=== PATIENT | female | born 1930 | race Caucasian/White ===

== ENCOUNTER 2016-09-24 09:44 | Emergency (ER) | payer OTHER ==
[2016-09-24 10:14] VITALS: BP 154/67
--- NOTE | 2016-09-24 10:46 | UC ---
Throat Pain/Nasal Ja HPI - HPI Summary HPI Summary: sinus pain and pressure x 4 weeks , + pnd, cough, nasal congestion no fever, no chills - History of Current Complaint Chief Complaint: UCRespiratory Stated Complaint: SINUS,SORE THROAT,COUGH Time Seen by Provider: 09/24/16 10:33 Hx Obtained From: Patient Onset/Duration: Gradual Onset, Lasting Weeks - 4, Still Present Severity: Moderate Cough: Nonproductive Associated Signs & Symptoms: Positive: Sinus Discomfort, Nasal Discharge. Negative: Fever, Rash - Allergies/Home Medications Allergies/Adverse Reactions: Allergies Allergy/AdvReac Type Severity Reaction Status Date / Time No Known Allergies Allergy Verified 09/24/16 10:18 Home Medications: Home Medications Bimatoprost 0.01% OPHTH (NF) [Lumigan 0.01% OPHTH (NF)] 1 drop BOTH EYES QPM [History Confirmed 09/24/16] Calcium Carbonate-Cholecalcife [Caltrate 600+D] 1 chw PO DAILY 09/24/16 [ History Confirmed 09/24/16] Cetirizine* [ZyrTEC 10 MG TAB*] 10 mg PO DAILY 09/24/16 [History Confirmed 09/24] Cyclosporine 0.05% OPHTH (NF) [Restasis 0.05% OPHTH] 1 drop BOTH EYES DAILY [History Confirmed 09/24/16] DULoxetine DR CAP* [Cymbalta CAP*] 30 mg PO DAILY 09/24/16 [History Confirmed ] Enalapril TAB* [Vasotec TAB*] 5 mg PO DAILY 09/24/16 [History Confirmed 09/24/16 ] Fluticasone NASAL SPRAY 50MCG* [Flonase NASAL SPRAY 50MCG*] 2 spray BOTH NARES DAILY 09/24/16 [History Confirmed 09/24/16] Folic Acid TAB* [Folvite TAB*] 1 mg PO DAILY 09/24/16 [History Confirmed ] Hydroxychloroquine TAB* [Plaquenil TAB*] 400 mg PO DAILY 09/24/16 [History Confirmed 09/24/16] Levothyroxine TAB* [Synthroid TAB*] 25 mcg PO 0800 09/24/16 [History Confirmed 09/24/16] Magnesium 500 mg PO DAILY 09/24/16 [History Confirmed 09/24/16] Methotrexate TAB* 5 tab PO Q7D 09/24/16 [History Confirmed 09/24/16] Multiple Vitamins W/ Minerals [Centrum] 1 tab PO DAILY 09/24/16 [History Confirmed 09/24/16] Omeprazole CAP* [Prilosec CAP* 20 MG] 20 mg PO DAILY 09/24/16 [History Confirmed 09/24/16] Pravastatin (NF) [Pravachol (NF)] 20 mg PO 1700 09/24/16 [History Confirmed ] Zolpidem TAB* [Ambien TAB*] 5 mg PO BEDTIME PRN 09/24/16 [History Confirmed ] PMH/Surg Hx/FS Hx/Imm Hx Endocrine History Of: Reports: Thyroid Disease Cardiovascular History Of: Reports: Hypertension - Surgical History Surgical History: Yes Surgery Procedure, Year, and Place: appendix. hysterectomy. back surgery - Family History Known Family History: Negative: Diabetes - Social History Alcohol Use: Rare Substance Use Type: None Smoking Status (MU): Never Smoked Tobacco - Immunization History Most Recent Influenza Vaccination: [id number] Review of Systems Constitutional: Negative Skin: Negative Eyes: Negative ENT: Sore Throat, Nasal Discharge Respiratory: Cough All Other Systems Reviewed And Are Negative: Yes Physical Exam Triage Information Reviewed: Yes Appearance: Well-Appearing, No Pain Distress, Well-Nourished Vital Signs: Initial Vital Signs Temp 97.7 F 09/24/16 10:11 Pulse 91 09/24/16 10:11 Resp 14 09/24/16 10:11 BP 154/67 09/24/16 10:11 Pulse Ox 99 09/24/16 10:11 Vital Signs Reviewed: Yes Eyes: Positive: Conjunctiva Clear ENT: Positive: Normal ENT inspection, Hearing grossly normal, Pharyngeal erythema, Nasal congestion, Nasal drainage Neck exam: Normal Neck: Positive: Supple, Nontender, No Lymphadenopathy Respiratory: Positive: Chest non-tender, Lungs clear, Normal breath sounds, No respiratory distress Cardiovascular: Positive: RRR, No Murmur, Pulses Normal Skin Exam: Normal Throat Pain/Nasal Course/Dx - Differential Dx/Diagnosis Provider Diagnoses: Sinusitis Discharge - Discharge Plan Condition: Stable Disposition: HOME Prescriptions: Amoxicillin/Clavulanate TAB* [Augmentin TAB 875*] 875 mg PO BID #20 tab Patient Education Materials: Sinusitis (ED) Additional Instructions: follow up with your pcp in 10 days
== END 2016-09-24 10:55 | disposition home or self-care (01) ==
LOC: UCCORT 09:44
DX: J32.9 Chronic sinusitis, unspecified (principal); E07.9 Disorder of thyroid, unspecified; I10 Essential (primary) hypertension
CPT/HCPCS: 99202; G0463

== ENCOUNTER 2021-08-13 16:37 | Observation (INO) ==
[2021-08-13 18:59] LABS: ABS Basophils 0.1 10^3/ul (0-0.2); ABS Eosinophils 0.4 10^3/ul (0-0.6); ABS Lymphocytes 1.3 10^3/ul (1.0-4.8); ABS Monocytes 0.9 10^3/ul (0-0.8); ABS Neutrophils 7.7 10^3/ul (1.5-7.7); Eosinophil % 3.5 %; Hematocrit 37 % (35-47); Hemoglobin 12.5 g/dL (12.0-16.0); Lymphocyte % 12.6 %; Mean Corpuscular HGB Conc 34 g/dL (31-36); Mean Corpuscular Hemoglobin 32 pg (27-31); Mean Corpuscular Volume 93 fL (80-97); Platelet Count 232 10^3/uL (150-450); Red Blood Count 3.95 10^6 /uL (3.70-4.87); Red Cell Distribution Width 13 % (10-15); White Blood Count 10.3 10^3/uL (3.5-10.8)
[2021-08-13 19:30] LABS: Albumin 4.2 g/dL (3.2-5.2); Albumin/Globulin Ratio 1.8 (1-3); Calcium 9.9 mg/dL (8.6-10.3); Globulin 2.4 g/dL (2-4); Potassium 4.5 mmol/L (3.5-5.0); Total Bilirubin 0.4 mg/dL (0.2-1.0); Total Protein 6.6 g/dL (6.4-8.9); eGFR CKD-EPI 71.5 (>60)
[2021-08-13] MEDS ORDERED: Ondansetron 4 mg VIAL 2 MG/ML 2 ml VIAL IV ONE (19:34)
[2021-08-13] MEDS ORDERED: Ondansetron 4 mg VIAL 2 MG/ML 2 ml VIAL IV PRN (21:12)
[2021-08-13 21:22] LABS: Troponin I 0.03 ng/mL (<0.03)
[2021-08-13] MEDS ORDERED: Tetan/Diph/Pertus SYR(Tdap) 0.5 ML SYR(BOOSTRIX) use SYR contains LATEX IM ONE (23:01)
[2021-08-13 23:13] LABS: Urine Appearance Clear; Urine Bilirubin Negative (Negative); Urine Blood Negative (Negative); Urine Color Yellow; Urine Glucose Negative (Negative); Urine Ketones Negative (Negative); Urine Nitrite Negative (Negative); Urine Protein Negative (Negative); Urine Specific Gravity 1.011 (1.002-1.030); Urine Urobilinogen Negative (Negative)
[2021-08-13] MEDS ORDERED: NS 0.9% 1000 ml BAG 1,000 ML IV SCH (23:15)
[2021-08-13 23:58] LABS: TSH Ultra Thyroid Stim Horm 0.85 mcIU/mL (0.34-5.60)
[2021-08-14] MEDS: CMC:Letrozole 2.5 MG TAB (NF) PO SCH (10:18)
[2021-08-14] MEDS: Multivitamins/Minerals TAB PO SCH (10:18)
[2021-08-14] MEDS ORDERED: NS 0.9% 1000 ml BAG 1,000 ML IV SCH (11:11)
[2021-08-14] MEDS: Pravastatin 20 mg TAB (NF) PO SCH (16:45)
[2021-08-14] MEDS: Enoxaparin 40 MG/0.4 ML SYR SUBCUT SCH (17:48)
[2021-08-14] MEDS: DULoxetine DR 30 mg CAP PO SCH (20:55)
[2021-08-15 06:55] LABS: ABS Basophils 0.1 10^3/ul (0-0.2); ABS Eosinophils 0.4 10^3/ul (0-0.6); ABS Lymphocytes 1.4 10^3/ul (1.0-4.8); ABS Monocytes 0.7 10^3/ul (0-0.8); ABS Neutrophils 3.2 10^3/ul (1.5-7.7); Eosinophil % 6.4 %; Hematocrit 27 % (35-47); Hemoglobin 9.1 g/dL (12.0-16.0); Mean Corpuscular HGB Conc 34 g/dL (31-36); Mean Corpuscular Hemoglobin 32 pg (27-31); Mean Corpuscular Volume 95 fL (80-97); Mean Platelet Volume 8.1 fL (7.4-10.4); Platelet Count 173 10^3/uL (150-450); Red Blood Count 2.84 10^6 /uL (3.70-4.87); Red Cell Distribution Width 13 % (10-15); White Blood Count 5.7 10^3/uL (3.5-10.8)
[2021-08-15 07:25] LABS: Calcium 8.5 mg/dL (8.6-10.3); Potassium 4.8 mmol/L (3.5-5.0); eGFR CKD-EPI 56.6 (>60)
[2021-08-15] MEDS: Multivitamins/Minerals TAB PO SCH (09:40)
[2021-08-15] MEDS: CMC:Letrozole 2.5 MG TAB (NF) PO SCH (09:40)
[2021-08-15] MEDS ORDERED: Perflutren Lipid Microsphere 3 ML VIAL ONE (10:26)
[2021-08-15] MEDS ORDERED: NS 0.9% 1000 ml BAG 1,000 ML IV SCH (12:15)
[2021-08-15] MEDS ORDERED: NS 0.9% 1000 ml BAG 1,000 ML IV ONE (12:29)
[2021-08-15] MEDS: Enoxaparin 40 MG/0.4 ML SYR SUBCUT SCH (17:10)
[2021-08-15] MEDS: Pravastatin 20 mg TAB (NF) PO SCH (17:10)
[2021-08-15] MEDS: DULoxetine DR 30 mg CAP PO SCH (19:57)
[2021-08-16 05:30] LABS: ABS Basophils 0.1 10^3/ul (0-0.2); ABS Eosinophils 0.5 10^3/ul (0-0.6); ABS Lymphocytes 1.4 10^3/ul (1.0-4.8); ABS Monocytes 0.7 10^3/ul (0-0.8); ABS Neutrophils 3.4 10^3/ul (1.5-7.7); Eosinophil % 7.8 %; Hematocrit 26 % (35-47); Hemoglobin 8.7 g/dL (12.0-16.0); Lymphocyte % 22.9 %; Mean Corpuscular HGB Conc 34 g/dL (31-36); Mean Corpuscular Hemoglobin 32 pg (27-31); Mean Corpuscular Volume 94 fL (80-97); Mean Platelet Volume 7.9 fL (7.4-10.4); Nucleated Red Blood Cells % 0.1; Platelet Count 175 10^3/uL (150-450); Red Blood Count 2.76 10^6 /uL (3.70-4.87); Red Cell Distribution Width 13 % (10-15)
[2021-08-16 05:59] LABS: Calcium 8.5 mg/dL (8.6-10.3); Potassium 4.5 mmol/L (3.5-5.0); eGFR CKD-EPI 72.6 (>60)
[2021-08-16] MEDS: Multivitamins/Minerals TAB PO SCH (09:49)
[2021-08-16] MEDS: CMC:Letrozole 2.5 MG TAB (NF) PO SCH (09:49)
[2021-08-16 11:54] VITALS: BP 139/54
== END 2021-08-16 15:21 | disposition home or self-care (01) ==
LOC: EDHOLD 16:37 → ED 16:37 → SUATTDRO 21:42 → MEDTELE 08-14 00:21
PROVIDERS: ADMIT Hospitalist; ATTEND Internal Medicine

== ENCOUNTER 2022-01-02 06:16 | Observation (INO) ==
[2022-01-02] MEDS ORDERED: ceFAZolin 1 GM ADVAN 1 GM in NS 0.9% 50 ML 50 ML IVPB ONE (07:17)
[2022-01-02 08:29] LABS: ABS Lymphocytes 0.5 10^3/ul (1.0-4.8); ABS Monocytes 0.6 10^3/ul (0-0.8); ABS Neutrophils 8.2 10^3/ul (1.5-7.7); Eosinophil % 0.1 %; Hematocrit 38 % (35-47); Hemoglobin 12.6 g/dL (12.0-16.0); Lymphocyte % 5.1 %; Mean Corpuscular HGB Conc 34 g/dL (31-36); Mean Corpuscular Hemoglobin 31 pg (27-31); Mean Corpuscular Volume 91 fL (80-97); Mean Platelet Volume 7.5 fL (7.4-10.4); Platelet Count 227 10^3/uL (150-450); Red Blood Count 4.12 10^6 /uL (3.70-4.87); Red Cell Distribution Width 18 % (10-15); White Blood Count 9.3 10^3/uL (3.5-10.8)
[2022-01-02 09:07] LABS: Albumin 3.8 g/dL (3.2-5.2); Albumin/Globulin Ratio 1.6 (1-3); C Reactive Protein 41.22 mg/L (<8.01); Calcium 9.5 mg/dL (8.6-10.3); Globulin 2.4 g/dL (2-4); Potassium 4.7 mmol/L (3.5-5.0); Total Bilirubin 0.5 mg/dL (0.2-1.0); Total Protein 6.2 g/dL (6.4-8.9); eGFR CKD-EPI 57.3 (>60)
[2022-01-02 09:36] LABS: Urine Appearance Clear; Urine Bilirubin Negative (Negative); Urine Blood Negative (Negative); Urine Color Yellow; Urine Glucose Trace (100mg/dL) (Negative); Urine Ketones Negative (Negative); Urine Nitrite Negative (Negative); Urine Protein Negative (Negative); Urine Specific Gravity 1.015 (1.005-1.030); Urine Urobilinogen 0.2 (Negative) (Negative); Urine pH 7.5 (5.0-9.0)
[2022-01-02] MEDS ORDERED: NS 0.9% 1000 ml BAG 1,000 ML IV ONE (09:36)
[2022-01-02] MEDS ORDERED: Ondansetron 4 mg VIAL 2 MG/ML 2 ml VIAL IV PRN (10:04)
[2022-01-02] MEDS ORDERED: ceFAZolin 2 GM in NS PREMIX 2 GM/100 ML BAG IVPB SCH (11:00)
[2022-01-02] MEDS ORDERED: ceFAZolin 1 GM in Dextrose 1 GM/50 ML BAG IVPB ONE (12:30)
[2022-01-02] MEDS: Enoxaparin 40 MG/0.4 ML SYR SUBCUT SCH (12:34)
[2022-01-02] MEDS: CMCS: Pravastatin 20 mg TAB (NF) PO SCH (16:40)
[2022-01-02] MEDS: ceFAZolin 2 GM in NS PREMIX 2 GM/100 ML BAG IVPB SCH (17:32)
[2022-01-02] MEDS ORDERED: DULoxetine DR 30 mg CAP PO SCH (21:00)
[2022-01-02] MEDS ORDERED: Brimonidine/Timolol 0.2%/0.5% OPTH(NF) SOL 5 ML BOTH EYES SCH (21:00)
[2022-01-02] MEDS: DULoxetine DR 30 mg CAP PO SCH (22:40)
[2022-01-03] MEDS: CMCS: Brimonidine/Timolol 0.2%/0.5% OPTH(NF) SOL 5 ML BOTH EYES SCH ×3 (00:10→21:10)
[2022-01-03] MEDS: ceFAZolin 2 GM in NS PREMIX 2 GM/100 ML BAG IVPB SCH (02:14)
[2022-01-03] MEDS: CMCS: Letrozole 2.5 MG TAB (NF) PO SCH (08:45)
[2022-01-03] MEDS: Multivitamins/Minerals TAB PO SCH (08:45)
[2022-01-03] MEDS: Calcium (OSCAL) 500 mg TAB PO SCH (08:45)
[2022-01-03] MEDS: ceFAZolin 2 GM PREMIX 2 G/50 ML BAG IV SCH ×2 (08:46→17:39)
[2022-01-03] MEDS ORDERED: MULTIVIT MINERAL IRON LUTEIN PO SCH (09:00)
[2022-01-03] MEDS ORDERED: CALCIUM CARBONATE 600 MG PO SCH (09:00)
[2022-01-03] MEDS ORDERED: Letrozole 2.5 MG TAB (NF) PO SCH (09:00)
[2022-01-03] MEDS ORDERED: CALCIUM PO SCH (09:00)
[2022-01-03] MEDS ORDERED: Polyethylene Glycol 3350 17 GM PACKET PO PRN (11:32)
[2022-01-03] MEDS ORDERED: Senna TAB 8.6 mg TAB PO PRN (11:32)
[2022-01-03] MEDS: Enoxaparin 40 MG/0.4 ML SYR SUBCUT SCH (12:07)
[2022-01-03] MEDS: CMCS: Pravastatin 20 mg TAB (NF) PO SCH (17:38)
[2022-01-03] MEDS: DULoxetine DR 30 mg CAP PO SCH (20:55)
[2022-01-04] MEDS: ceFAZolin 2 GM PREMIX 2 G/50 ML BAG IV SCH ×3 (03:20→18:39)
[2022-01-04] MEDS: Multivitamins/Minerals TAB PO SCH (08:16)
[2022-01-04] MEDS: Calcium (OSCAL) 500 mg TAB PO SCH (08:16)
[2022-01-04] MEDS: CMCS: Brimonidine/Timolol 0.2%/0.5% OPTH(NF) SOL 5 ML BOTH EYES SCH ×2 (09:45→21:48)
[2022-01-04] MEDS: CMCS: Letrozole 2.5 MG TAB (NF) PO SCH (09:46)
[2022-01-04] MEDS: Enoxaparin 40 MG/0.4 ML SYR SUBCUT SCH (11:38)
[2022-01-04] MEDS: CMCS: Pravastatin 20 mg TAB (NF) PO SCH (18:39)
[2022-01-04] MEDS: DULoxetine DR 30 mg CAP PO SCH (21:48)
[2022-01-05] MEDS: ceFAZolin 2 GM PREMIX 2 G/50 ML BAG IV SCH ×2 (01:55→09:52)
[2022-01-05] MEDS: Calcium (OSCAL) 500 mg TAB PO SCH (09:43)
[2022-01-05] MEDS: Multivitamins/Minerals TAB PO SCH (09:43)
[2022-01-05] MEDS: CMCS: Letrozole 2.5 MG TAB (NF) PO SCH (09:53)
[2022-01-05] MEDS: CMCS: Brimonidine/Timolol 0.2%/0.5% OPTH(NF) SOL 5 ML BOTH EYES SCH (09:54)
[2022-01-05 10:22] LABS: Rapid COVID-19 Molecular Undetected (Undetected)
[2022-01-05 11:45] VITALS: BP 121/50
[2022-01-05] MEDS: Enoxaparin 40 MG/0.4 ML SYR SUBCUT SCH (12:53)
== END 2022-01-05 14:10 ==
LOC: EDHOLD 06:16 → ED 06:16 → EDHOLD 16:27 → MED 16:28 → UNDODISOB 16:29
PROVIDERS: ADMIT Hospitalist; ATTEND Hospitalist